=== PATIENT | male | born 1945 | race Caucasian/White ===

== ENCOUNTER → 2018-09-10 | Outpatient (CLI) | payer MEDICARE ==
[~2018-09-10] MED LIST: ALBU90OI; ASPI81EC; CEPH500 PO; CIPR500 PO; DOXA1 PO; HYDACE5 PO; IBUP800 PO; MULVITMIND; OXYACE5T; OXYACE7.5T PO; PROM25 PO; RXOXYACE PO; SALMOI6.5; TAMS.4ER PO; TRAM50 PO
== END | disposition home or self-care (01) ==
LOC: PLD 10:40 → LAB SHORT 10:40
DX: D22.5 Melanocytic nevi of trunk (principal)
CPT/HCPCS: 88305

== ENCOUNTER → 2021-02-28 | Outpatient (CLI) | payer MEDICARE | END | disposition home or self-care (01) | LOC: LAB SHORT 08:16 → LAB 08:16 | DX: D22.5 Melanocytic nevi of trunk (principal) | CPT/HCPCS: 88305 ==

== ENCOUNTER 2022-05-10 10:03 | Day surgery (SDC) | payer OTHER ==
[~2022-05-10] VITALS: Ht 190.5 cm; Wt 116.3 kg
[2022-05-10] MEDS ORDERED: FERROUS SULFAT325 M3 PO (10:34)
[2022-05-10] MEDS ORDERED: LOSARTAN POTASS25 M2 PO (10:35)
[2022-05-10] MEDS ORDERED: FUROSEMIDE20 MG (10:35)
[2022-05-10] MEDS ORDERED: ROSUVASTATIN CAL5 MG PO (10:35)
[2022-05-10] MEDS ORDERED: METOPROLOL SUCC25 MG (10:35)
[2022-05-10] MEDS ORDERED: POTA CHLORIDE ER 20M (10:36)
[2022-05-10] MEDS ORDERED: Vitamin D1000 UNI1 PO (10:37)
[2022-05-10] MEDS ORDERED: Acerola C500 MG PO (10:37)
--- NOTE | 2022-05-10 10:41 | NUR ---
05/10/22 1041 Mel Grossman AT [address] AT 1023
== END 2022-05-10 11:54 | disposition home or self-care (01) ==
LOC: ORSCSDS 10:03
PROVIDERS: Ophthalmology
PROC: 08DK3ZZ Extraction of Left Lens, Percutaneous Approach (ICD-10-PCS; principal; 2022-05-10 11:30)
DX: H25.12 Age-related nuclear cataract, left eye (principal); J45.909 Unspecified asthma, uncomplicated; I25.10 Atherosclerotic heart disease of native coronary artery without angina pectoris; E78.5 Hyperlipidemia, unspecified; I10 Essential (primary) hypertension; E66.9 Obesity, unspecified; Z68.32 Body mass index [BMI] 32.0-32.9, adult; Z79.899 Other long term (current) drug therapy
CPT/HCPCS: J2001; J2250; J3010; J3301; J7040; V2632

== ENCOUNTER 2022-05-24 10:37 | Day surgery (SDC) | payer OTHER ==
[~2022-05-24] VITALS: Ht 190.5 cm; Wt 116.2 kg
[~2022-05-24 10:37] MED LIST changes: +Acerola C500 MG PO; +FERROUS SULFAT325 M3 PO; +FUROSEMIDE20 MG; +LOSARTAN POTASS25 M2 PO; +METOPROLOL SUCC25 MG; +POTA CHLORIDE ER 20M; +ROSUVASTATIN CAL5 MG PO; +Vitamin D1000 UNI1 PO
--- NOTE | 2022-05-24 12:17 | NUR ---
05/24/22 1217 Mel Grossman AT [address] AT 131/74
== END 2022-05-24 13:40 | disposition home or self-care (01) ==
LOC: ORSCSDS 10:37
PROVIDERS: Ophthalmology
PROC: 08DJ3ZZ Extraction of Right Lens, Percutaneous Approach (ICD-10-PCS; principal; 2022-05-24 12:30)
DX: H25.11 Age-related nuclear cataract, right eye (principal); Z96.1 Presence of intraocular lens; I25.10 Atherosclerotic heart disease of native coronary artery without angina pectoris; G47.33 Obstructive sleep apnea (adult) (pediatric); I71.40 Abdominal aortic aneurysm, without rupture, unspecified; J45.909 Unspecified asthma, uncomplicated; I10 Essential (primary) hypertension; E66.9 Obesity, unspecified; Z68.32 Body mass index [BMI] 32.0-32.9, adult
CPT/HCPCS: J2001; J2250; J3010; J3301; J7040; V2632

== ENCOUNTER 2022-07-03 10:41 | Day surgery (SDC) | payer MEDICARE ==
[~2022-07-03] VITALS: Ht 190.5 cm; Wt 117.8 kg
[~2022-07-03 10:41] MED LIST changes: -FUROSEMIDE20 MG; +FUROSEMIDE20 MG PO; -METOPROLOL SUCC25 MG; +METOPROLOL SUCC25 MG PO
--- NOTE | 2022-07-03 12:07 | NUR ---
07/03/22 3872 RAYMOND TEJEDA GAVE REPORT TO TCR AFTER BREAKING HER FOR LUNCH JUST PRIOR TO PROCEDURE
== END 2022-07-03 12:46 | disposition home or self-care (01) ==
LOC: ORSCSDS 10:41
PROVIDERS: Surgery
PROC: 0DBK8ZX Excision of Ascending Colon, Via Natural or Artificial Opening Endoscopic, Diagnostic (ICD-10-PCS; principal; 2022-07-03 12:00)
DX: Z12.11 Encounter for screening for malignant neoplasm of colon (principal); Z86.010 Personal history of colon polyps; D12.2 Benign neoplasm of ascending colon; I25.10 Atherosclerotic heart disease of native coronary artery without angina pectoris; G47.33 Obstructive sleep apnea (adult) (pediatric); J45.909 Unspecified asthma, uncomplicated; E78.5 Hyperlipidemia, unspecified; I10 Essential (primary) hypertension; J44.9 Chronic obstructive pulmonary disease, unspecified; I25.2 Old myocardial infarction; E66.9 Obesity, unspecified; Z68.32 Body mass index [BMI] 32.0-32.9, adult; Z87.891 Personal history of nicotine dependence; Z79.899 Other long term (current) drug therapy
CPT/HCPCS: 88305; J2704; J7120

== ENCOUNTER 2023-02-20 14:07 | Emergency (ER) | payer MEDICARE ==
[~2023-02-20] VITALS: Ht 193 cm; Wt 110.7 kg
[2023-02-20 14:28] LABS: BASOPHILS ABSOLUTE AUTO 0.06 K/mm3 (0.00-0.23); BASOPHILS PERCENT AUTO 1 % (0-2); EOSINOPHILS ABSOLUTE AUTO 0.06 K/mm3 (0.00-0.68); EOSINOPHILS PERCENT AUTO 1 % (0-6); Hematocrit 37.7 % (37.0-53.0); Hemoglobin 12.4 g/dL (13.5-17.5); IMMATURE GRAN ABSOLUTE AUTO 0.05 K/mm3 (0.00-0.10); IMMATURE GRAN PERCENT AUTO 0 % (0-1); LYMPHOCYTES PERCENT AUTO 6 % (21-46); MONOCYTES ABSOLUTE AUTO 1.25 K/mm3 (0.16-1.47); MONOCYTES PERCENT AUTO 10 % (4-13); Mean Corpuscular HGB 31.5 pg (26.0-34.0); Mean Corpuscular HGB Conc 32.9 g/dL (31.5-36.5); Mean Corpuscular Volume 96 fL (80-100); Mean Platelet Volume 7.9 fL (9.1-12.4); NEUTROPHILS ABSOLUTE AUTO 10.33 K/mm3 (1.96-9.15); NEUTROPHILS PERCENT AUTO 83 % (41-73); Platelet Count 334 K/mm3 (150-400); RDW Coefficient Variation 12.3 % (11.7-14.2); RDW Standard Deviation 43.6 fL (35.1-46.3); Red Blood Cell Count 3.94 M/mm3 (4.30-5.90); White Blood Cell Count 12.45 K/mm3 (4.00-11.30)
[2023-02-20 14:47] LABS: C-REACTIVE PROTEIN, EXT RANGE 10.9 mg/dL (0.000-0.300)
[2023-02-20 14:51] LABS: Albumin, Blood 3.3 g/dL (3.4-5.0); Albumin/Globulin Ratio 0.8 (0.8-1.8); Bilirubin, Total 0.6 mg/dL (0.1-1.0); Bun/Creatinine Ratio 18.3 (12.0-20.0); Calcium, Blood 9.3 mg/dL (8.5-10.1); Creatinine, Blood 0.87 mg/dL (0.60-1.20); Globulin, Blood 4.3 g/dL (2.2-4.0); Potassium, Blood 4.5 mmol/L (3.5-5.5); Total Protein, Blood 7.6 g/dL (6.4-8.2)
[2023-02-20 18:27] LABS: Adenovirus Not Detected (NOT DETECT); Bordetella pertussis Not Detected (NOT DETECT); Chlamydophila pneumoniae Not Detected (NOT DETECT); Coronavirus 229E Not Detected (NOT DETECT); Coronavirus HKU1 Not Detected (NOT DETECT); Coronavirus NL63 Not Detected (NOT DETECT); Coronavirus OC43 Not Detected (NOT DETECT); Human Metapneumovirus Not Detected (NOT DETECT); Human Rhinovirus/Enterovirus Not Detected (NOT DETECT); Influenza A/2009-H1 Not Detected (NOT DETECT); Influenza A/H1 Not Detected (NOT DETECT); Influenza A/H3 Not Detected (NOT DETECT); Influenza B Not Detected (NOT DETECT); Mycoplasma pneumoniae Not Detected (NOT DETECT); Parainfluenza Virus 1 Not Detected (NOT DETECT); Parainfluenza Virus 2 Not Detected (NOT DETECT); Parainfluenza Virus 3 Not Detected (NOT DETECT); Parainfluenza Virus 4 Not Detected (NOT DETECT); Respiratory Syncytial Virus Not Detected (NOT DETECT); SARS-Cov-2 (COVID-19), BioFire Not Detected (NOT DETECT)
[2023-02-20] MEDS ORDERED: Mobic7.5 MG PO (19:08)
[2023-02-20 19:18] VITALS: BP 138/74
== END 2023-02-20 19:20 | disposition home or self-care (01) ==
LOC: ER 14:07
PROVIDERS: Physician Assistant
DX: M25.462 Effusion, left knee (principal); M25.442 Effusion, left hand; M25.432 Effusion, left wrist; Z79.899 Other long term (current) drug therapy; Z79.891 Long term (current) use of opiate analgesic; Z79.82 Long term (current) use of aspirin; I10 Essential (primary) hypertension
CPT/HCPCS: 0202U; 80053; 85025; 86140; 86308; 96374; 99283-25; J1885; J7030

== ENCOUNTER 2023-07-30 09:59 | Day surgery (SDC) | payer MEDICARE ==
[~2023-07-30] VITALS: Ht 190.5 cm; Wt 116.2 kg
[~2023-07-30 09:59] MED LIST changes: +Mobic7.5 MG PO
[2023-07-30] MEDS ORDERED: PREDNISONE 5 MG (10:21)
[2023-07-30] MEDS ORDERED: PRED5 PO (10:23)
[2023-07-30] MEDS ORDERED: METHOTREXATE2.510 PO (10:24)
--- NOTE | 2023-07-30 10:33 | NUR ---
07/30/23 Addison3 Chloe Granados CALL LIGHT WITHIN REACH.
[2023-07-30 12:08] VITALS: BP 159/78
== END 2023-07-30 13:02 | disposition home or self-care (01) ==
LOC: ORSCSDS 09:59
PROVIDERS: Orthopaedic Surgery
PROC: 01N54ZZ Release Median Nerve, Percutaneous Endoscopic Approach (ICD-10-PCS; principal; 2023-07-30 11:30)
PROC: 0LN60ZZ Release Left Lower Arm and Wrist Tendon, Open Approach (ICD-10-PCS; principal; 2023-07-30 11:30)
DX: G56.03 Carpal tunnel syndrome, bilateral upper limbs (principal); M65.332 Trigger finger, left middle finger; I25.10 Atherosclerotic heart disease of native coronary artery without angina pectoris; J45.909 Unspecified asthma, uncomplicated; E78.5 Hyperlipidemia, unspecified; I10 Essential (primary) hypertension; Z68.31 Body mass index [BMI] 31.0-31.9, adult; Z87.891 Personal history of nicotine dependence; Z79.82 Long term (current) use of aspirin; Z79.899 Other long term (current) drug therapy
CPT/HCPCS: A9270; J2250; J7120

== ENCOUNTER 2024-03-21 08:26 | Emergency (ER) | payer MEDICARE ==
[~2024-03-21] VITALS: Ht 190.5 cm; Wt 111.1 kg
[~2024-03-21 08:26] MED LIST changes: +METHOTREXATE2.510 PO; +PRED5 PO; +PREDNISONE 5 MG
[2024-03-21 09:31] VITALS: BP 136/75
== END 2024-03-21 10:27 | disposition home or self-care (01) ==
LOC: ER 08:26
DX: H91.93 Unspecified hearing loss, bilateral (principal); I10 Essential (primary) hypertension; Z87.891 Personal history of nicotine dependence; Z79.52 Long term (current) use of systemic steroids; Z79.899 Other long term (current) drug therapy
CPT/HCPCS: 99283